=== PATIENT | female | born 1990 | race Caucasian/White ===

== ENCOUNTER → 2021-04-23 15:01 | Outpatient (BNVA) | payer OTHER, SELFPAY | PROVIDERS: Family Provider Nurse Practitioner; Visit Provider Nurse Practitioner Family | DX: Z20.822 Contact with and (suspected) exposure to COVID-19 (principal); J06.9 Acute upper respiratory infection, unspecified | CPT/HCPCS: 87635 ==

== ENCOUNTER → 2022-10-05 15:02 | Outpatient (BNVA) | payer OTHER, MEDICAID, SELFPAY | PROVIDERS: Family Provider Nurse Practitioner; PCP Registered Nurse; Visit Provider Registered Nurse | DX: J02.0 Streptococcal pharyngitis (principal) | CPT/HCPCS: 87880 ==

== ENCOUNTER → 2022-10-26 14:19 | Outpatient (BNVA) | payer OTHER, MEDICAID, SELFPAY | PROVIDERS: Family Provider Nurse Practitioner; PCP Registered Nurse; Visit Provider Registered Nurse | DX: G43.829 Menstrual migraine, not intractable, without status migrainosus (principal); F32.A Depression, unspecified; R53.83 Other fatigue; Z79.899 Other long term (current) drug therapy | CPT/HCPCS: 80053; 82306; 82607; 84443; 85025 ==

== ENCOUNTER → 2023-01-25 15:11 | Outpatient (BNVA) | payer OTHER, SELFPAY | PROVIDERS: Family Provider Nurse Practitioner; PCP Registered Nurse; Visit Provider Registered Nurse | DX: R23.2 Flushing (principal); E53.8 Deficiency of other specified B group vitamins; E55.9 Vitamin D deficiency, unspecified; N89.8 Other specified noninflammatory disorders of vagina | CPT/HCPCS: 81000 ==

== ENCOUNTER → 2023-05-23 10:20 | Outpatient (BNVA) | payer OTHER, SELFPAY | PROVIDERS: Family Provider Nurse Practitioner; PCP Registered Nurse; Visit Provider Registered Nurse | DX: N39.0 Urinary tract infection, site not specified (principal) | CPT/HCPCS: 81000; 87086 ==

== ENCOUNTER → 2023-05-30 13:55 | Outpatient (BNVA) | payer OTHER, SELFPAY | PROVIDERS: Family Provider Nurse Practitioner; PCP Registered Nurse; Visit Provider Registered Nurse | DX: R10.2 Pelvic and perineal pain (principal); R10.31 Right lower quadrant pain | CPT/HCPCS: 81000 ==

== ENCOUNTER → 2023-11-30 15:14 | Outpatient (BNVA) | payer OTHER, SELFPAY | PROVIDERS: Family Provider Nurse Practitioner; PCP Registered Nurse; Referring Provider Registered Nurse; Visit Provider Surgery | DX: R10.12 Left upper quadrant pain; R19.02 Left upper quadrant abdominal swelling, mass and lump | CPT/HCPCS: 99204 ==

== ENCOUNTER 2023-12-08 07:04 | Outpatient (CLI) | payer OTHER, SELFPAY ==
--- NOTE | 2023-12-08 07:15 | US_ITS ---
WS: [id number] ULTRASOUND SOFT TISSUES LEFT upper abdomen. HISTORY: left upper quadrant pain/lipoma COMPARISON: None available. TECHNIQUE: 2-D and color Doppler imaging is submitted. Palpable area in the LEFT upper quadrant is imaged as directed by the patient. There is no mass ident ified. Normal appearance of the soft tissues. Subcutaneous soft tissue is normal. IMPRESSION: No soft tissue mass or abnormality noted in the LEFT upper quadrant as directed by the patient.
== END 2023-12-08 07:05 | disposition home or self-care (01) ==
LOC: RAD 07:05
PROVIDERS: Family Provider Nurse Practitioner; PCP Registered Nurse; Visit Provider Surgery
DX: R10.12 Left upper quadrant pain (principal)
CPT/HCPCS: 76882

== ENCOUNTER → 2024-01-09 14:20 | Outpatient (BNVA) | payer OTHER, SELFPAY | PROVIDERS: Family Provider Nurse Practitioner; PCP Registered Nurse; Visit Provider Surgery | DX: R10.12 Left upper quadrant pain (principal); R19.02 Left upper quadrant abdominal swelling, mass and lump | CPT/HCPCS: 99214 ==

== ENCOUNTER 2024-02-01 09:01 | Day surgery (SDC) | payer OTHER, SELFPAY ==
[2024-02-01 09:17] VITALS: BP 124/88; PULSE 79; RESP 16; TEMP 36.6; O2SAT 98; BMI 43.0
[2024-02-01 09:22] LABS: OR HCG Qualitative Urine Negative (Negative)
[2024-02-01] MEDS: sodium chloride 0.9% 1,000 ML 30 ML IV (09:23)
--- NOTE | 2024-02-01 09:49 | ANES.PREANE2 ---
Pre-Anesthetic Assessment Height/Weight: Height 1.57 m Weight 106.594 kg Temp Pulse Resp BP Pulse Ox O2 Del Method 98 F 79 16 124/88 98 Room Air 02/01/24 09:17 02/01/24 09:17 02/01/24 09:17 02/01/24 09:17 02/01/24 09:17 02/01/24 09:17 Operation Date: 02/01/24 10:15 Proposed Procedures p EGD 94733, R10.12, R19.02(Not Applicable) - Esau Leon DO Familial anesthetic complications: None Was Beta Natalee taken within 24 hours: N/A Was Clonidine taken within 24 hours: N/A Last intake: Intake Last Liquid Date 01/31/24 Last Liquid Time 22:00 Last Solid Date 01/31/24 Last Solid Time 18:00 Social No alcohol and No tobacco Exam alert, oriented x 3, clear to auscultation bilaterally and regular rate & rhythm Airway Mallampati: Class I Dentition: full Pulmonary Asthma GI Gastroesophageal Reflux Disease Anesthetic Plan ASA status: 2 Anesthesia: MAC Risk of > 500 ml blood loss (7ml/kg in children): No Medications/Allergies Home Medications Medication Instructions Recorded Confirmed Last Taken Type albuterol sulfate 2.5 mg/3 mL 2.5 mg (3 mL) inhalation QID PRN 09/01/23 02/01/24 2 Weeks Ago Rx (0.083 %) solution for nebulization shortness of breath or wheezing ~01/18/24 #75 mL albuterol sulfate 90 mcg/actuation 2 puff inhalation Q6H PRN 11/21/23 02/01/24 2 Weeks Ago Rx aerosol inhaler (ProAir HFA) bronchospasm 30 days #8.5 grams ~01/18/24 mecobalamin (vitamin B12) 5,000 5,000 mcg PO DAILY 01/09/24 01/30/24 01/30/24 History mcg disintegrating tablet pantoprazole 40 mg tablet,delayed 40 mg PO BID 6 weeks #84 tabs 01/09/24 02/01/24 01/31/24 Rx release (Protonix) Allergies Allergy/AdvReac Type Severity Reaction Status Date / Time Latex, Natural Rubber Allergy ALGY-Rash Verified 02/01/24 09:14 pseudoephedrine Allergy ALGY-Difficulty Verified 02/01/24 09:13 [From Sudafed] Breathing methylphenidate AdvReac ADR-Loss Verified 02/01/24 09:14 [From Ritalin] of Appetite Current Medications Generic Name Dose Route Start Last Admin Trade Name Octavia PRN Reason Stop Dose Admin Sodium Chloride 1,000 mls @ 30 mls/hr 02/01/24 09:15 02/01/24 09:23 Sodium Chloride 0.9% IV 02/02/24 09:14 30 mls/hr .Q24H OZZY Administration PFSH Anesthesia Medical History Asthma PTSD (post-traumatic stress disorder) Anxiety Depression History of lipoma left upper rib Scoliosis 25 degree curve Surgical History History of tubal ligation 2013 Family History Mother Cancer, Onset Age: 52 pre-cancer cells in uterus Diabetes Hypertension Grandfather Diabetes maternal Grandmother Diabetes maternal Stroke maternal Denies family history of CAD (coronary artery disease) Chronic kidney disease (CKD) Lung disease Social History Smoking and tobacco/nicotine status: former use of tobacco/nicotine Second hand smoke exposure: Yes Alcohol intake: never Substance/Drug Use: never Adopted: No Caregiver/support person: No Lives independently: No Household members: spouse Marital status: service: No Current occupational status: employed Sexually active: Yes Do you think of yourself as: Straight/Heterosexual Current gender identity: Female Female Reproductive History Date of last menstrual period: 01/23/24 Data Anesthesia Cardiac Studies: No Data to Display
--- NOTE | 2024-02-01 10:15 | W.PM.OPSUD ---
Surgery/Procedure H&P Update DATE OF PROCEDURE: February 01, 2024 DATE H&P PERFORMED: 01/09/24 H&P UPDATE INFORMATION: I have reviewed H&P completed within last 30 days, I have examined patient prior to procedure and No changes to prior documentation PLANNED PROCEDURE: Operation Date: 02/01/24 10:15 Proposed Procedures p EGD 49597, R10.12, R19.02(Not Applicable) - Esau Leon, DO
[2024-02-01 10:23] VITALS: BP 111/57; PULSE 69; RESP 14; TEMP 36.1; O2SAT 96
[2024-02-01 10:30] VITALS: BP 111/77; PULSE 68; RESP 16; O2SAT 98
[2024-02-01 10:40] VITALS: BP 115/84; PULSE 71; RESP 18; O2SAT 97
--- NOTE | 2024-02-01 11:00 | ANE.PACU2 ---
Inpatient post-anesthesia follow up: Airway intact: Yes Vital signs: Temperature 97.0 F Pulse Rate 71 Respiratory Rate 18 Blood Pressure 115/84 Pulse Oximetry 97 Oxygen Delivery Me thod Room Air Oxygen Flow Rate Fraction of Inspir ed Oxygen Hydration adequate: Yes Nausea and vomiting: No Pain level: 1 Mental status: Baseline
== END 2024-02-01 11:00 | disposition home or self-care (01) ==
PROVIDERS: Anesthesiology; Family Provider Nurse Practitioner; PCP Registered Nurse; Visit Provider Surgery
PROC: 0DJ08ZZ Inspection of Upper Intestinal Tract, Via Natural or Artificial Opening Endoscopic (ICD-10-PCS; CPT 43235; principal; 2024-02-01 10:15)
DX: R10.12 Left upper quadrant pain (principal); R19.02 Left upper quadrant abdominal swelling, mass and lump; K29.50 Unspecified chronic gastritis without bleeding; K21.9 Gastro-esophageal reflux disease without esophagitis; J45.909 Unspecified asthma, uncomplicated; F41.9 Anxiety disorder, unspecified; F32.A Depression, unspecified; Z87.891 Personal history of nicotine dependence
CPT/HCPCS: 43239; 81025; 88305; J2704; J7030

== ENCOUNTER 2024-03-06 11:02 | Day surgery (SDC) | payer OTHER, SELFPAY ==
[2024-03-06] VITALS (12 sets, daily range): BP systolic 102–132; BP diastolic 40–88; PULSE 66–78; RESP 13–22; TEMP 36.1–36.3; O2SAT 93–100; BMI 36.6
--- NOTE | 2024-03-06 11:42 | ANES.PREANE2 ---
Pre-Anesthetic Assessment Height/Weight: Height 1.57 m Weight 90.718 kg Temp Pulse Resp BP Pulse Ox O2 Del Method 97.0 F L 78 18 108/74 98 Room Air 03/06/24 11:27 03/06/24 11:27 03/06/24 11:27 03/06/24 11:27 03/06/24 11:27 03/06/24 11:27 Operation Date: 03/06/24 14:10 Proposed Procedures p Laparoscopic Cholecystectomy 73814, K80.50(Not Applicable) - Esau Leon DO Familial anesthetic complications: None Was Beta Natalee taken within 24 hours: N/A Was Clonidine taken within 24 hours: N/A Last intake: Intake Last Liquid Date 03/05/24 Last Liquid Time 23:30 Last Solid Date 03/05/24 Last Solid Time 18:00 Social No alcohol and No tobacco Exam alert, oriented x 3, clear to auscultation bilaterally and regular rate & rhythm Airway Mallampati: Class I Dentition: full Pulmonary Asthma GI Gastroesophageal Reflux Disease Anesthetic Plan ASA status: 2 Anesthesia: General Risk of > 500 ml blood loss (7ml/kg in children): No Medications/Allergies Home Medications Medication Instructions Recorded Confirmed Last Taken Type albuterol sulfate 2.5 mg/3 mL 2.5 mg (3 mL) inhalation QID PRN 09/01/23 03/05/24 2 Weeks Ago Rx (0.083 %) solution for nebulization shortness of breath or wheezing ~01/18/24 #75 mL albuterol sulfate 90 mcg/actuation 2 puff inhalation Q6H PRN 11/21/23 03/05/24 2 Weeks Ago Rx aerosol inhaler (ProAir HFA) bronchospasm 30 days #8.5 grams ~01/18/24 Allergies Allergy/AdvReac Type Severity Reaction Status Date / Time Latex, Natural Rubber Allergy ALGY-Rash Verified 02/20/24 14:35 pseudoephedrine Allergy ALGY-Difficulty Verified 02/20/24 14:35 [From Sudafed] Breathing methylphenidate AdvReac ADR-Loss Verified 02/20/24 14:35 [From Ritalin] of Appetite PFSH Anesthesia Medical History Asthma PTSD (post-traumatic stress disorder) Anxiety Depression History of lipoma left upper rib Scoliosis 25 degree curve Surgical History History of tubal ligation 2012 Family History Mother Cancer, Onset Age: 52 pre-cancer cells in uterus Diabetes Hypertension Grandfather Diabetes maternal Grandmother Diabetes maternal Stroke maternal Denies family history of CAD (coronary artery disease) Chronic kidney disease (CKD) Lung disease Social History Smoking and tobacco/nicotine status: former use of tobacco/nicotine Second hand smoke exposure: Yes Alcohol intake: never Substance/Drug Use: never Adopted: No Caregiver/support person: No Lives independently: No Household members: spouse Marital status: service: No Current occupational status: employed Sexually active: Yes Do you think of yourself as: Straight/Heterosexual Current gender identity: Female Female Reproductive History Date of last menstrual period: 02/13/24 Data Anesthesia Cardiac Studies: No Data to Display
--- NOTE | 2024-03-06 11:46 | W.PM.OPSUD ---
Surgery/Procedure H&P Update DATE OF PROCEDURE: March 06, 2024 DATE H&P PERFORMED: 02/20/24 H&P UPDATE INFORMATION: I have reviewed H&P completed within last 30 days, I have examined patient prior to procedure and No changes to prior documentation PLANNED PROCEDURE: Operation Date: 03/06/24 14:10 Proposed Procedures p Laparoscopic Cholecystectomy 64742, K80.50(Not Applicable) - Esau Leon, DO
[2024-03-06] MEDS: scopolamine 1.5 Patch 1 PATCH TRANSDERMA (11:47)
[2024-03-06] MEDS: sodium chloride 0.9% 1,000 ML 30 ML IV (11:48)
[2024-03-06] MEDS: ceFAZolin 2,000 MG in sodium chloride 0.9% (plus) 50 ML 100 MG IV (12:17)
[2024-03-06] MEDS: lidocaine-epi 2% PF 1:200,000 20 mL SDV XX (12:47)
--- NOTE | 2024-03-06 13:08 | P.OP_ITS ---
Operative Report Date of procedure: March 06, 2024 Surgeon: Esau Leon DO Brief History: This is a very pleasant 33-year-old female who presented my office with abdominal pain after complete workup she was diagnosed with biliary colic. Laparoscopic appendectomy was indicated. The risk and benefits of the procedure, notably the fact that there is a chance cholecystectomy does not relieve all of her symptoms, were explained to the patient. She is understand the risks and wished to proceed. Procedure: Preoperative diagnosis: Biliary colic Postoperative diagnosis: Same Procedure performed: Laparoscopic cholecystectomy Surgeon: Dr. Esua Leon DO Estimated blood loss: 5 mL Specimens: Gallbladder to pathology Complications: None apparent Description of procedure: Patient was wheeled into the operative room and placed on the OR table in a supine position. Abdomen was inspected prepped and draped in usual sterile fashion. Time-out was performed and all present were in agreement. A 15 blade scalp was used to make a stab incision in the left upper quadrant and intra- abdominal insufflation was achieved using a Veress needle. After localizing the tissue incisions were made and a 5 millimeter trocar was placed into the umbilicus as well as 2 in the right upper quadrant. A 12 millimeter trocar was placed in the epigastrium. Gallbladder was grasped and elevated. The triangle of Calot was carefully dissected using blunt dissection and electrocautery until the triangle of Calot clearly identified. The cystic duct was clipped proximally and double clipped distally. The duct was then ligated proximally. The cystic artery was doubly clipped and ligated. The gallbladder was then removed from the liver bed using electrocautery. The gallbladder was removed from the abdomen using an Endo-Catch bag through the epigastric incision. The liver bed was inspected and no bleeding was seen. The abdomen was irrigated and suctioned. All ports removed. Skin was washed and dried. Incisions were closed with 4-0 Monocryl in a subcuticular interrupted fashion. Skin glue was applied. Patient tolerated the procedure well.
[2024-03-06] MEDS: ondansetron 2 mg/ML SDV 2 mL 4 MG IVP ×2 (13:25→13:40)
[2024-03-06] MEDS: HYDROcodone-acetaminophen 7.5-325 mg Tablet 1 TAB PO (14:02)
[2024-03-06] MEDS: metoclopramide 5 mg/mL SDV 2 mL 10 MG IVP (14:02)
--- NOTE | 2024-03-06 15:05 | ANE.PACU2 ---
Inpatient post-anesthesia follow up: Airway intact: Yes Vital signs: Temperature 97.3 F Pulse Rate 76 Respiratory Rate 18 Blood Pressure 117/81 Pulse Oximetry 97 Oxygen Delivery Me thod Room Air Oxygen Flow Rate 8 Fraction of Inspir ed Oxygen Hydration adequate: Yes Nausea and vomiting: No Pain level: 1 Mental status: Baseline
== END 2024-03-06 15:05 | disposition home or self-care (01) ==
PROVIDERS: PCP Registered Nurse; Visit Provider Surgery
PROC: 0FT44ZZ Resection of Gallbladder, Percutaneous Endoscopic Approach (ICD-10-PCS; CPT 47562; principal; 2024-03-06 14:10)
DX: K80.10 Calculus of gallbladder with chronic cholecystitis without obstruction (principal); K21.9 Gastro-esophageal reflux disease without esophagitis; F41.9 Anxiety disorder, unspecified; F32.A Depression, unspecified; Z87.891 Personal history of nicotine dependence
CPT/HCPCS: 47562; 88304; J0690; J1100; J2250; J2405; J2704; J2710; J2765; J3010; J3490; J7030

== ENCOUNTER → 2024-06-06 07:21 | Outpatient (BNVA) | payer OTHER, SELFPAY | PROVIDERS: PCP Registered Nurse; Visit Provider Registered Nurse | DX: Z78.9 Other specified health status (principal) | CPT/HCPCS: 87624 ==

== ENCOUNTER → 2024-06-18 10:20 | Outpatient (BNVA) | payer OTHER, SELFPAY | PROVIDERS: PCP Registered Nurse; Visit Provider Registered Nurse | DX: R68.89 Other general symptoms and signs (principal) | CPT/HCPCS: 87400 ==

== ENCOUNTER 2025-04-09 15:25 | Outpatient (RCR) | payer OTHER, SELFPAY | END 2025-04-11 23:59 | disposition home or self-care (01) | LOC: SPT 15:25 | PROVIDERS: PCP Registered Nurse; Visit Provider Registered Nurse | DX: M77.8 Other enthesopathies, not elsewhere classified (principal) | CPT/HCPCS: 97161 ==

== ENCOUNTER 2025-04-12 05:00 | Outpatient (RCR) | payer OTHER, SELFPAY | END 2025-05-12 23:59 | disposition home or self-care (01) | LOC: SPT 05:00 | PROVIDERS: PCP Registered Nurse; Visit Provider Registered Nurse | DX: M77.8 Other enthesopathies, not elsewhere classified (principal) | CPT/HCPCS: 97110 ==